=== PATIENT | female | born 1955 | race Caucasian/White ===

== ENCOUNTER 2017-07-08 08:26 | Emergency (ER) | payer MEDICAID ==
[~2017-07-08] VITALS: Ht 160 cm; Wt 86.0 kg
[~2017-07-08 08:26] MED LIST: ASPI-496 PO
[2017-07-08] MEDS ORDERED: FAMOTIDINE 20 MG/2 ML IVP ONE (09:00)
[2017-07-08] MEDS ORDERED: MAALOX/HYOSCYAMINE/LIDOCAINE 45 ML BTL PO ONE (09:00)
[2017-07-08] MEDS ORDERED: ONDANSETRON 2MG/ML, 2ML IVPush ONE (09:00)
[2017-07-08] MEDS ORDERED: LORazepam 2 MG/ML, 1ML IVPush ONE (09:00)
[2017-07-08] MEDS ORDERED: SODIUM CHLORIDE FLUSH 10ML SYR IVF ONE (09:00)
[2017-07-08] MEDS ORDERED: SODIUM CHLORIDE 0.9% 1,000ML IVBOLUS ONE (09:00)
[2017-07-08 09:31] LABS: ALANINE AMINOTRANSFERASE 42 U/L (12-78); ALBUMIN 3.6 g/dL (3.4-5.0); ANION GAP 7 mmol/L (5-15); CALCIUM 8.8 mg/dL (8.5-10.1); CHLORIDE 109 mmol/L (98-107)
[2017-07-08] MEDS ORDERED: LORazepam 2 MG/ML, 1ML ONE (09:31)
[2017-07-08 09:32] LABS: BASOPHILS # (AUTO) 0.05 x10^3/uL (0-0.1); BASOPHILS % (AUTO) 1 % (0-1); EOSINOPHILS # (AUTO) 0.12 x10^3/uL (0-0.4); EOSINOPHILS % (AUTO) 2 % (1-7); LYMPHOCYTES # (AUTO) 1.95 x10^3/uL (1-3.4); LYMPHOCYTES % (AUTO) 30 % (22-44); MD NO; MEAN CORPUSCULAR HEMOGLOBIN 30.6 pg (27.0-34.8); MEAN CORPUSCULAR HGB CONC 34.6 g/dL (32.4-35.8); MEAN CORPUSCULAR VOLUME 88.3 fL (80-100); MEAN PLATELET VOLUME 9.4 fL (7.4-10.4); MONOCYTES # (AUTO) 0.49 x10^3/uL (0.2-0.8); MONOCYTES % (AUTO) 7 % (2-9); NEUTROPHILS # (AUTO) 3.99 x10^3/uL (1.8-6.8); NEUTROPHILS % (AUTO) 60 % (42-75); PLATELET COUNT 254 x10^3/uL (130-400); RED BLOOD COUNT 5.32 x10^6/uL (3.82-5.3); RED CELL DISTRIBUTION WIDTH 13.4 % (9.6-15.2)
[2017-07-08] MEDS ORDERED: MAALOX/HYOSCYAMINE/LIDOCAINE 45 ML BTL ONE (09:32)
[2017-07-08] MEDS ORDERED: FAMOTIDINE 20 MG/2 ML ONE (09:32)
[2017-07-08] MEDS ORDERED: ONDANSETRON 2MG/ML, 2ML ONE (09:32)
[2017-07-08 09:35] LABS: ALKALINE PHOSPHATASE 77 U/L (45-117); BILIRUBIN,TOTAL 0.6 mg/dL (0.2-1.0); TOTAL PROTEIN 7.5 g/dL (6.4-8.2); TROPONIN I < 0.015 ng/mL (0.000-0.045)
[2017-07-08 10:16] LABS: CULTURE INDICATED? YES; MICROSCOPIC INDICATED
[2017-07-08] MEDS ORDERED: OMNIPAQUE 350 MG/ML, 100ML BOTTLE ONE (11:41)
[2017-07-08 12:03] VITALS: BP 130/88
== END 2017-07-08 12:13 | disposition home or self-care (01) ==
LOC: ED 08:52
DX: K29.00 Acute gastritis without bleeding (principal); I10 Essential (primary) hypertension
CPT/HCPCS: 36415; 71045; 71275; 74177; 76700; 80053; 81001; 83690; 84484; 85025; 87086; 93005; 96361; 96374; 96375; 99285; J2060; J2405; J7030; Q9967; S0028

== ENCOUNTER 2019-08-29 11:44 | Emergency (ER) | payer MEDICAID ==
[~2019-08-29] VITALS: Ht 160 cm; Wt 85.0 kg
--- NOTE | 2019-08-29 11:53 | NUR ---
PT WITH EPISTAXIS THIS AM LASTING 15MIN, SOAKING THROUGH PAPER TOWEL. PT NOT ON THINNERS. PT STATES SHE HAS BEEN HAVING WHITE LAST WEEK AND ALSO HAD AN EPISODE OF EPISTAXIS LAST WEEK. 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
[2019-08-29] MEDS ORDERED: OXYMETAZOLINE NASAL SPRAY 0.05%,30ML ONE (12:21)
[2019-08-29 12:25] VITALS: BP 151/92
--- NOTE | 2019-08-29 12:26 | NUR ---
DR. GUTHRIE AT BEDSIDE. DR. GUTHRIE PACKED R NARE WITH AFRIN AND NASAL CLAMP APPLIED. DR. GUTHRIE TO REASSESS EPISTAXIS IN 15-20 MINS.
[2019-08-29] MEDS ORDERED: OXYMETAZOLINE NASAL SPRAY 0.05%,30ML NAS ONE (12:30)
[2019-08-29] MEDS ORDERED: SILVER NITRATE STICK TP ONE (13:13)
== END 2019-08-29 14:15 | disposition home or self-care (01) ==
LOC: ED 13:27
DX: R04.0 Epistaxis (principal); I10 Essential (primary) hypertension
CPT/HCPCS: 30901; 99284